=== PATIENT | female | born 1990 ===

== ENCOUNTER → 2024-11-23 | Outpatient (REF) | LOC: M SLEEP HO 11:00 | PROVIDERS: ATTEND Physician Assistant | DX: G47.33 Obstructive sleep apnea (adult) (pediatric) (principal) ==

== ENCOUNTER → 2025-05-03 | Outpatient (REF) | payer SELFPAY | LOC: M LABCFH 15:33 | DX: Z12.4 Encounter for screening for malignant neoplasm of cervix (principal) ==